=== PATIENT | female | born 1990 | race Caucasian/White ===

== ENCOUNTER 2022-10-03 00:59 | Emergency (ER) | payer OTHER ==
[2022-10-03 01:21] VITALS: BP 113/76; PULSE 85; RESP 17; TEMP 98.4; BMI 24.2
[2022-10-03] MEDS ORDERED: LORazepam 2 MG TABLET PO ONE (01:56)
[2022-10-03] MEDS ORDERED: LORazepam 1 MG TABLET ONE (02:16)
[2022-10-03 02:32] LABS: HEMATOCRIT 39.6 % (32.4-45.2); HEMOGLOBIN 13.5 GM/dL (10.7-15.3); MCH 30.9 pg (25.7-33.7); MCHC 34.1 g/dl (32.0-36.0); MEAN CELL VOLUME 90.6 fl (80-96); MEAN PLT VOLUME 7.9 fl (7.5-11.1); PLATELET COUNT 349 10^3/uL (134-434); RBC 4.38 M/mm3 (3.60-5.2); RDW 13.3 % (11.6-15.6); WHITE BLOOD COUNT 8.6 K/mm3 (4.0-10.0)
[2022-10-03 02:38] LABS: HCG,QUALITATIVE URINE Negative
[2022-10-03 02:53] LABS: CALCIUM 9.5 mg/dL (8.5-10.1)
[2022-10-03 02:54] LABS: BLOOD UREA NITROGEN 15.3 mg/dL (7-18)
[2022-10-03 02:56] LABS: CREATININE 0.8 mg/dL (0.55-1.3)
[2022-10-03 02:58] LABS: BILIRUBIN,TOTAL 0.3 mg/dL (0.2-1); TOT PROT 7.5 g/dl (6.4-8.2)
[2022-10-03 03:02] LABS: PH,URINE 5.5 (5.0-8.0); URINE APPEARANCE CLEAR; URINE BILIRUBIN NEGATIVE (NEGATIVE); URINE COLOR YELLOW; URINE GLUCOSE (UA) NEGATIVE (NEGATIVE); URINE KETONE NEGATIVE (NEGATIVE); URINE LEUK ESTERASE NEGATIVE (NEGATIVE); URINE NITRITE NEGATIVE (NEGATIVE); URINE PROTEIN NEGATIVE (NEGATIVE); URINE UROBILINOGEN 0.2 mg/dL (0.2-1.0)
== END 2022-10-03 03:22 | disposition home or self-care (01) ==
LOC: JER 00:59
DX: R20.2 Paresthesia of skin (principal)
CPT/HCPCS: 36415; 80053; 81003; 84703; 85027; 93005; 93010; 99284-25